=== PATIENT | male | born 1940 | race Caucasian/White ===

== ENCOUNTER → 2020-05-17 | Outpatient (RCR) | payer MEDICARE ==
[~2020-05-17] MED LIST: ACIPHEX20 MG PO; ASPIRIN 81M81 MG/TA2 PO; GENTLE LAXATIVE10 MG RC; KEPPRA1000 MG PO; LEVOTHYROXIN0.025 MG PO; LIPITOR 10MG10 MG PO; MILK OF MA400 MG/52 PO; MULTIPLE VITAMI1 CAP PO; MYLANTA 150 ML150 M1 PO; NORCO 325 MG-51 TAB PO; PHENYTEK200 MG PO; PHENYTEK300 MG PO; PREVACID 15MG15 M1 PO; SYNTHROID 0.0.025 MG PO; TRANDATE 100MG100 MG PO; TYLENOL 325MG325 MG
== END | disposition home or self-care (01) ==
LOC: COL.CR
DX: Z48.812 Encounter for surgical aftercare following surgery on the circulatory system (principal); Z95.1 Presence of aortocoronary bypass graft; I42.2 Other hypertrophic cardiomyopathy

== ENCOUNTER 2021-04-17 15:30 | Outpatient (RCR) | payer MEDICARE | END 2021-04-20 | disposition home or self-care (01) | LOC: WSPT | DX: M25.811 Other specified joint disorders, right shoulder (principal) ==

== ENCOUNTER 2021-09-03 18:42 | Inpatient (IN) | payer MEDICARE ==
[~2021-09-03] VITALS: Ht 177.8 cm; Wt 64.1 kg
[2021-09-03] VITALS (78 sets, daily range): BP systolic 115; BP diastolic 73; PULSE 82; TEMP 98.7; O2SAT 99–100
[2021-09-03 19:39] LABS: HEMATOCRIT 40.2 % (42.0-52.0); HEMOGLOBIN 13.1 g/dl (13.5-18.0); MEAN CELL VOLUME 90 fl (80.0-100.0); MEAN CORPUSCULAR HEMOGLOBIN 29 pg (27-31); MEAN CORPUSCULAR HGB CONC 33 g/dl (33.0-37.0); MEAN PLATELET VOLUME 10.9 fl (7.4-10.4); PLATELET COUNT 353 K/mm3 (130-400); RED BLOOD COUNT 4.49 M/mm3 (4.20-5.60); REDCELL DISTRIBUTION WIDTH-CV 15.3 % (11.5-14.5)
[2021-09-03 19:53] LABS: ALBUMIN 3.6 gm/dL (3.4-4.8); BILIRUBIN,TOTAL 0.4 mg/dL (0.2-1.2); CALCIUM 8.8 mg/dL (8.4-10.2); CREATININE, serum 1.29 mg/dL (0.72-1.25); POTASSIUM 3.6 mmol/L (3.5-4.5); TOTAL PROTEIN 7.7 gm/dL (6.2-8.1)
[2021-09-03 19:57] LABS: BAND 51 % (0-10); METAMYELOCYTE 5 % (0-0); NEUTROPHILS 36 % (42.0-75.2); PLATELET ESTIMATE NORMAL (NORMAL)
[2021-09-03 19:58] LABS: ANISOCYTOSIS 1+; HYPOCHROMIA 1+
[2021-09-03] MEDS ORDERED: PLAVIX 75MG TAB75 MG PO (22:52)
[2021-09-04] VITALS (1390 sets, daily range): BP systolic 111–149; BP diastolic 71–98; PULSE 76–84; TEMP 97.4–98.9; O2SAT 77–100
[2021-09-04 05:54] LABS: HEMOGLOBIN 11.4 g/dl (13.5-18.0); MEAN CELL VOLUME 92 fl (80.0-100.0); MEAN CORPUSCULAR HEMOGLOBIN 29 pg (27-31); MEAN CORPUSCULAR HGB CONC 32 g/dl (33.0-37.0); MEAN PLATELET VOLUME 10.5 fl (7.4-10.4); PLATELET COUNT 305 K/mm3 (130-400); REDCELL DISTRIBUTION WIDTH-CV 15.4 % (11.5-14.5)
[2021-09-04 06:00] LABS: HEMATOCRIT 35.9 % (42.0-52.0)
[2021-09-04 06:13] LABS: CALCIUM 8.1 mg/dL (8.4-10.2); CREATININE, serum 0.78 mg/dL (0.72-1.25); MAGNESIUM 1.6 mg/dL (1.6-2.6); POTASSIUM 3.9 mmol/L (3.5-4.5)
[2021-09-04 06:17] LABS: BAND 38 % (0-10); LYMPHOCYTE 1 % (20.0-51.0); NEUTROPHILS 57 % (42.0-75.2)
[2021-09-04 06:18] LABS: PLATELET ESTIMATE NORMAL (NORMAL)
--- NOTE | 2021-09-04 07:00 | NUR ---
PT RESTING IN BED. VSS. PT ON AIRVO. WILL CONTINUE TO MONTIOR.
[2021-09-04 07:37] LABS: ARTERIAL BLD GAS O2 SATURATION 99.4 % (92-100); ARTERIAL BLD GAS TCO2 CT 21.4; ARTERIAL BLOOD GAS BASE EXCESS -2.2 (-2-2); ARTERIAL BLOOD GAS HCO3 20.5 meq/L (22-26); ARTERIAL BLOOD GAS PCO2 29.6 mmHg (35-45); ARTERIAL BLOOD GAS pH 7.46 (7.35-7.45)
[2021-09-04 07:39] LABS: ARTERIAL BLOOD GAS PO2 245.7 mmHg (80-100)
--- NOTE | 2021-09-04 13:28 | NUR ---
Java Websphere Developer contacted patient by phone to complete initial intake as patient is in isolation for [facility]. Patient has been on 35 liters of oxgyen via airvo today. Patient lives alone in [place] and sees Dr. Tesfaye for primary care. [facility] with no difficulties and was using home oxygen from [facility] until about a month ago. Patient reports no other DME usage and advised he is normally independent with ADLS. Patient has DPOA-HC in his chart that designates his late , Mela as primary agent, then his two sons Carlos "Johann" and Syed. SW contacted patient's son, Johann (ph#[phone]) to check in. Johann advised patient had home health services after being hospitalized in April, however no longer receives these services. Johann thinks patient may have used [facility]. Johann advised he is supportive of patient and can check in on him, but can't be with him 11/11. Discharge Plan: Patient on high flow oxygen, pending PT/OT evaluations
[2021-09-05] VITALS (812 sets, daily range): BP systolic 131–153; BP diastolic 74–99; PULSE 65–81; TEMP 97.4–97.9; O2SAT 80–100
[2021-09-05 05:46] LABS: HEMOGLOBIN 10.9 g/dl (13.5-18.0); MEAN CELL VOLUME 89 fl (80.0-100.0); MEAN CORPUSCULAR HEMOGLOBIN 29 pg (27-31); MEAN CORPUSCULAR HGB CONC 33 g/dl (33.0-37.0); MEAN PLATELET VOLUME 10.7 fl (7.4-10.4); PLATELET COUNT 303 K/mm3 (130-400); RED BLOOD COUNT 3.73 M/mm3 (4.20-5.60); REDCELL DISTRIBUTION WIDTH-CV 15.5 % (11.5-14.5)
[2021-09-05 05:48] LABS: HEMATOCRIT 33.3 % (42.0-52.0)
[2021-09-05 05:59] LABS: CALCIUM 8.6 mg/dL (8.4-10.2); CREATININE, serum 0.76 mg/dL (0.72-1.25); POTASSIUM 4.1 mmol/L (3.5-4.5)
[2021-09-05 06:14] LABS: BAND 28 % (0-10); LYMPHOCYTE 7 % (20.0-51.0); NEUTROPHILS 65 % (42.0-75.2)
[2021-09-05 06:15] LABS: PLATELET ESTIMATE NORMAL (NORMAL)
--- NOTE | 2021-09-05 06:28 | NUR ---
PT HAS SLEPT WELL ALL NIGHT, HAS HAD NO COMPLAINTS. INFREQUENT COUGHING, NOT PRODUCTIVE. INSTRUCTED ABOUT SPUTUM SAMPLE NEEDED, COLLECTION CONTAINER LEFT AT BEDSIDE. TURNED O2 OFF, PT PULSE OXIMETRY REMAINED ABOVE 94%. WILL LEAVE ON RA AT THIS TIME AND CONTINUE TO MONITOR.
--- NOTE | 2021-09-05 12:56 | NUR ---
Instructional Support Services Director attended clinical rounds. Patient on room air. SW requested PT/OT orders.
--- NOTE | 2021-09-05 15:30 | NUR ---
ANDRES CRUZ RETURNED CALL TO RECEIVE REPORT FOR THIS PATIENT BEING TRANSFERRED TO ROOM 306, PATIENT INFORMED AND BELONGING GATHERED ALONG WITH PLACING PATIENT ON PORTABLE TELEMETRY
--- NOTE | 2021-09-05 16:00 | NUR ---
PATIENT TRANSFERRED TO ROOM 306 ALL BELONGING SENT WITH PATIENT INCLUDING CELLPHONE, GLASSES AND SLEEP MASK. ALSO INFORMED RECEIVING NURSE CRUZ THAT PATIENT'S REMDESIVIR WAS HANGING ON IV POLE IN PATIENT ROOM
--- NOTE | 2021-09-05 20:10 | NUR ---
Patient is resting in bed, alert and oriented x 4, VSS, on RA 97%, dry sporadic cough. Assessment completed, meds provided. No other needs at this time. Call light within reach.
[2021-09-06 00:02] VITALS: BP 155/90; PULSE 77; TEMP 98.8
[2021-09-06 04:14] VITALS: BP 116/72; PULSE 67; TEMP 97.7
--- NOTE | 2021-09-06 06:38 | NUR ---
Patient had an uneventful night. Stated had a good sleep. Continues at RA. Report will be given to day RN.
[2021-09-06] MEDS ORDERED: DOXYCYCLINE 10100 MG PO (09:52)
[2021-09-06] MEDS ORDERED: DECADRON6 MG PO (09:59)
[2021-09-06] MEDS ORDERED: RT Albuterol HFA MDI IH (10:16)
[2021-09-06] MEDS ORDERED: ALBUTEROL1.25 MG/3 IH (10:17)
[2021-09-06] MEDS ORDERED: TOPROL XL 25MG25 MG PO (10:19)
--- NOTE | 2021-09-06 12:38 | NUR ---
Window Installation Subcontractor contacted patient by phone as plan is for discharge home today. SW reviwed IM form with patient who verbalized understanding and provided verbal consent as signature. SW placed copy on patient's chart. SW discussed PT recommendation for Home Health and patient states he would like to be set up with [facility]. SW contacted [facility] and faxed referral with discharge orders. SW contacted patient's son, Johann who will come apple picking supervisor patient this afternoon. SW provided update on discharge plan. Discharge Plan: Home with [facility]
== END 2021-09-06 14:45 | disposition home health service (06) | DRG 177 ==
LOC: COL.ER 18:42 → ICU 21:36 → MEDICAL 09-05 16:06
PROVIDERS: Personal Emergency Response Attendant; Student in an Organized Health Care Education/Training Program; ADMIT Internal Medicine
PROC: XW033E5 Introduction of Remdesivir Anti-infective into Peripheral Vein, Percutaneous Approach, New Technology Group 5 (ICD-10-PCS; principal; 2021-09-03)
PROC: 5A0935A Assistance with Respiratory Ventilation, Less than 24 Consecutive Hours, High Flow/Velocity Cannula (ICD-10-PCS; 2021-09-03)
DX: U07.1 COVID-19 (principal); J12.82 Pneumonia due to coronavirus disease 2019; J96.01 Acute respiratory failure with hypoxia; N17.9 Acute kidney failure, unspecified; E87.2 Acidosis; I10 Essential (primary) hypertension; E78.5 Hyperlipidemia, unspecified; E03.9 Hypothyroidism, unspecified; R73.9 Hyperglycemia, unspecified; E86.0 Dehydration; I25.10 Atherosclerotic heart disease of native coronary artery without angina pectoris; Z85.89 Personal history of malignant neoplasm of other organs and systems; Z79.82 Long term (current) use of aspirin; Z95.1 Presence of aortocoronary bypass graft
CPT/HCPCS: 99223-AI; 99232-AI; 99233-AI; 99239; J0248; J0456; J0696; J1100; J1650; J3475; J7030; J7050; J7120; J7512; Q9967

== ENCOUNTER 2021-09-08 14:44 | Inpatient (IN) | payer MEDICARE ==
[~2021-09-08] VITALS: Ht 177.8 cm; Wt 61.6 kg
[~2021-09-08 14:44] MED LIST changes: +ALBUTEROL1.25 MG/3 IH; +DECADRON6 MG PO; +DOXYCYCLINE 10100 MG PO; +PLAVIX 75MG TAB75 MG PO; +RT Albuterol HFA MDI IH; +TOPROL XL 25MG25 MG PO
[2021-09-08 16:08] LABS: HEMATOCRIT 37.9 % (42.0-52.0); HEMOGLOBIN 12.6 g/dl (13.5-18.0); MEAN CELL VOLUME 87 fl (80.0-100.0); MEAN CORPUSCULAR HEMOGLOBIN 29 pg (27-31); MEAN CORPUSCULAR HGB CONC 33 g/dl (33.0-37.0); MEAN PLATELET VOLUME 10.8 fl (7.4-10.4); PLATELET COUNT 430 K/mm3 (130-400); RED BLOOD COUNT 4.38 M/mm3 (4.20-5.60); REDCELL DISTRIBUTION WIDTH-CV 14.9 % (11.5-14.5)
[2021-09-08 16:22] LABS: BAND 9 % (0-10); LYMPHOCYTE 2 % (20.0-51.0); NEUTROPHILS 79 % (42.0-75.2); PLATELET ESTIMATE INCREASED (NORMAL)
[2021-09-08 16:30] LABS: ALANINE AMINOTRANSFERASE 19 U/L (0-55); ALKALINE PHOSPHATASE 45 U/L (40-150); ANION GAP 13 mmol/L (7-16); AST,SGOT 22 U/L (5-34); BILIRUBIN,TOTAL 0.2 mg/dL (0.2-1.2); BLOOD UREA NITROGEN 27 mg/dL (8-26); C-REACTIVE PROTEIN 2.52 mg/dL (0.00-0.50); CALCIUM 8.5 mg/dL (8.4-10.2); CARBON DIOXIDE 22 mmol/L (23-31); CHLORIDE 99 mmol/L (98-107); CREATINE KINASE 56 U/L (30-200); CREATININE, serum 0.86 mg/dL (0.72-1.25); GLUCOSE 115 mg/dL (70-99); POTASSIUM 4.2 mmol/L (3.5-4.5); SODIUM 134 mmol/L (136-145); TOTAL PROTEIN 6.3 gm/dL (6.2-8.1)
[2021-09-08 16:39] LABS: TROPONIN-I < 0.010 ng/mL (0.00-0.033)
[2021-09-08 18:02] VITALS: BP 125/66; PULSE 90; TEMP 98.2
--- NOTE | 2021-09-08 18:19 | NUR ---
PATIENT ARRIVED FROM ED IN . AMBULATED TO BED, BATHROOM, SINK AND BACK WITH NO ASSISTIVE DEVICES. OXYMASK AT 8L. NO COMPLAINTS OF PAIN. NO NOTICABLE COUGH. FRICTION RUB HEARD IN MIDDLE RIGHT LOBE. PATIENT VERY WELL SPOKEN AND CLEAR. ORIENTED TO ROOM, DIETARY AND PROVIDED HYGINE AND WATER MUG.
[2021-09-08 19:20] VITALS: BP 142/92; PULSE 85; TEMP 98.3
--- NOTE | 2021-09-08 22:09 | NUR ---
Patient denies SOB and dyspnea. During assessement, patient was on oxygen at 4 L/min via NC. LS CTA in upper lobes, diminished in lower. Given ABX per orders. Voices no questions, needs, or concerns at this time. In recliner with call light within reach.
[2021-09-09 00:02] VITALS: BP 121/69; PULSE 87; TEMP 98.3
[2021-09-09 04:20] VITALS: BP 150/81; PULSE 83; TEMP 97.6
--- NOTE | 2021-09-09 06:00 | NUR ---
Continues on oxygen at 4 L/min via NC. Denies having any SOB and dyspena. Voices no questions, needs, or concerns at this time. In bed with call light within reach.
[2021-09-09 08:00] VITALS: BP 149/78; PULSE 92; TEMP 98
--- NOTE | 2021-09-09 08:00 | NUR ---
Patient laying in bed, towel over eyes. A&Ox4. VSS 4L NC O2, no reported SOB. IV CDI. Contact/droplet precautions in place. Denies pain and discomfort. Call light within reach
[2021-09-09 11:50] VITALS: BP 123/69; PULSE 97; TEMP 97.9
--- NOTE | 2021-09-09 13:16 | NUR ---
Sw met with pt to complete intake. Pt lives at home alone. Pt NK is his brother Lisandro @ [phone] and PDOA-Hc is Mela Isabel and in chart. Pt is indepenendent on all ADLS and uses O2 at home. The pt is currently using 8L while in the hospital. The pt gets his medications from [facility] and PCP is Kirt Couch. No other needs stated at this time. Sw to await for further recommendations and follow up as needed. DC: Home.
[2021-09-09 16:00] VITALS: BP 141/81; PULSE 97
--- NOTE | 2021-09-09 17:03 | NUR ---
Patient resting in bed, A&Ox4. VSS 2.5L NC O2, no complaints SOB. Independent in the room. Contact/droplet precautions inplace. Call light within reach
[2021-09-09 20:49] VITALS: BP 124/62; PULSE 103; TEMP 97.8
--- NOTE | 2021-09-09 22:11 | NUR ---
ALERT AND OX4. SETTING UP IN RECLINER EATING DINER. DENIES SOA, CHEST PAIN OR DIZZY. NEEDS HOME O2 SET UP ANTICIPATES DC TOMORROW. POC DISCUSSED. CALL LIGHT WI REACH.
[2021-09-10] VITALS: BP 124/66; PULSE 93; TEMP 98.4
[2021-09-10 04:01] VITALS: BP 118/72; PULSE 83; TEMP 98
--- NOTE | 2021-09-10 05:53 | NUR ---
RESTED THROUGH THE NIGHT WITHOUT INCIDENT. NEEDS MET. AM MEDS GIVEN. DC AFTER HOME O2 SET UP.
[2021-09-10 06:22] LABS: HEMOGLOBIN 11.8 g/dl (13.5-18.0); MEAN CELL VOLUME 90 fl (80.0-100.0); MEAN CORPUSCULAR HEMOGLOBIN 29 pg (27-31); MEAN CORPUSCULAR HGB CONC 32 g/dl (33.0-37.0); PLATELET COUNT 429 K/mm3 (130-400); RED BLOOD COUNT 4.07 M/mm3 (4.20-5.60); REDCELL DISTRIBUTION WIDTH-CV 15.4 % (11.5-14.5)
[2021-09-10 06:25] LABS: HEMATOCRIT 36.5 % (42.0-52.0)
[2021-09-10 06:37] LABS: CALCIUM 8.5 mg/dL (8.4-10.2); CREATININE, serum 0.69 mg/dL (0.72-1.25); POTASSIUM 4.3 mmol/L (3.5-4.5)
[2021-09-10 06:51] LABS: BAND 20 % (0-10); LYMPHOCYTE 9 % (20.0-51.0); METAMYELOCYTE 2 % (0-0); NEUTROPHILS 57 % (42.0-75.2)
[2021-09-10 06:52] LABS: PLATELET ESTIMATE INCREASED (NORMAL)
[2021-09-10 08:46] VITALS: BP 111/60; PULSE 108; TEMP 97.8
--- NOTE | 2021-09-10 09:53 | NUR ---
PATINET UP AND IN RECYLINER. INDEPENDENT IN ROOM. ON 2.5L OF HUMIDIFIED O2. NO COMPLAINTS OF PAIN. TOLERATING MEDS WELL. SKIN INTACT. PLAN TO HOPEFULLY DISCHARGE PENDING HOME O2.
[2021-09-10] MEDS ORDERED: DECADRON6 MG PO (10:07)
--- NOTE | 2021-09-10 13:56 | NUR ---
SW informed that patient would be discharging on this day and would need home O2. Patient states that he utilizes [facility] currently for his O2 needs. Company contacted and faxed documenation sent.
[2021-09-10 14:51] VITALS: BP 87/51; PULSE 78; TEMP 98
--- NOTE | 2021-09-10 16:30 | NUR ---
PATIENT INDEPENDENTLY DRESSED. EDUCATION AND DISCHARGE INSTUCTIONS GIVEN. PATIENT OXYGEN TANK DELIVERED AND SET UP. IV DISCONTINUED, PATIENT NOT ON TELE. WHEELED OUT TO PATIENT ADMISSIONS TO SON'S CAR AND HELPED INTO RIDE.
== END 2021-09-10 15:05 | disposition home or self-care (01) | DRG 177 ==
LOC: COL.ER 14:44 → MEDICAL 15:44
PROVIDERS: Emergency Medicine; Student in an Organized Health Care Education/Training Program; ADMIT Internal Medicine
PROC: 5A0935A Assistance with Respiratory Ventilation, Less than 24 Consecutive Hours, High Flow/Velocity Cannula (ICD-10-PCS; principal; 2021-09-08)
DX: U07.1 COVID-19 (principal); J12.82 Pneumonia due to coronavirus disease 2019; J96.01 Acute respiratory failure with hypoxia; I10 Essential (primary) hypertension; E78.5 Hyperlipidemia, unspecified; E03.9 Hypothyroidism, unspecified; I25.10 Atherosclerotic heart disease of native coronary artery without angina pectoris; Z85.89 Personal history of malignant neoplasm of other organs and systems; Z99.81 Dependence on supplemental oxygen; Z79.82 Long term (current) use of aspirin; Z95.1 Presence of aortocoronary bypass graft
CPT/HCPCS: 99223-AI; 99232-AI; 99239; J1200; J1650; J2930; J7030; J8540; Q9967